=== PATIENT | male | born 1975 | race Caucasian/White ===

== ENCOUNTER → 2016-11-04 | Emergency (ER) | payer MEDICAID ==
[~2016-11-04] VITALS: Wt 74.6 kg
[~2016-11-04] MED LIST: MECL12.574 PO
--- NOTE | 2016-11-04 15:00 | ERD ---
ER Documentation Chief Complaint Date/Time DATE: 11/04/16 TIME: 14:59 Chief Complaint HEADACHE FOR 3 DAYS WITH DIZZINESS AND [place]. NO NEURO DEF. NO TRAUMA HPI Patient is a 40-year-old male with no medical problems who presents with headache and dizziness. He also has ear pain and feels ringing in both ears. It has been there for the past 3 days. He has had no medicines. The symptoms are constant. He has no weakness of his arms or legs. There is no slurred speech. Upon review of old medical records this is the patient's first visit to the emergency department. He does not currently have a primary doctor. ROS All systems reviewed and are negative except as per history of present illness. Medications Home Meds Active Scripts Meclizine Hcl* (Antivert*) 12.5 Mg Tab, 25 MG PO Q6H Y for DIZZINESS, #20 TAB Prov:ISIAH CARCAMO MD 11/04/16 Allergies Allergies: Coded Allergies: No Known Allergy (Unverified , 11/04/16) PMhx/Soc Medical and Surgical Hx: pt denies Medical Hx History of Surgery: Yes (spinal surgery) Anesthesia Reaction: No Hx Neurological Disorder: No Hx Respiratory Disorders: No Hx Cardiac Disorders: No Hx Psychiatric Problems: No Hx Alcohol Use: No Hx Substance Use: No Hx Tobacco Use: No Smoking Status: Never smoker FmHx Family History: diabetes Physical Exam Vitals Vital Signs Date Time Temp Pulse Resp B/P Pulse Ox O2 Delivery O2 Flow Rate FiO2 11/04/16 10:06 98.6 66 21 120/76 98 Physical Exam Const: No acute distress Head: Atraumatic Eyes: Normal Conjunctiva ENT: Normal External Ears, Nose and Mouth. Neck: Full range of motion..~ No meningismus. Resp: Clear to auscultation bilaterally Cardio: Regular rate and rhythm, no murmurs Abd: Soft, non tender, non distended. Normal bowel sounds Skin: No petechiae or rashes Back: No midline or flank tenderness Ext: No cyanosis, or edema Neur: Awake and alert, no slurred speech, strength is 5 out of 5 in all 4 extremities, cranial nerves II through XII intact, no pronator drift, normal gait Psych: Normal Mood and Affect Procedures/MDM Smoking Cessation Therapy: Pt. was lectured for greater than 3 minutes on the health risks of continued smoking and the benefits of cessation. Patient is a 40-year-old male with no medical problems who presents with headache and dizziness. He also has ear pain. It is possible that this is Mni re's disease versus vertigo. At this point I doubt stroke or other significant intracranial process. I doubt intracranial mass or abscess. At this point I believe outpatient management is appropriate with a prescription for meclizine. The patient will need to follow-up closely with the local clinics within 24-48 hours for reevaluation. I do not believe he requires further workup at this time. I believe the risks of radiation outweigh the benefits with CT scan of the brain. Departure Diagnosis: Primary Impression: Vertigo Additional Impression: Headache Headache type: unspecified Headache chronicity pattern: acute headache Intractability: not intractable Qualified Code: R51 - Acute nonintractable headache, unspecified headache type Condition: Fair Patient Instructions: Self-Care for Headaches, Vertigo, Unspecified [facility] Usted se martino hecho un examen mdico de control que le indica que no est en yuly condicin que requiera tratamiento urgente en el Departamento de Emergencia. Un estudio ms profundo y el tratamiento de rincon condicin pueden esperar sin ningn riesgo hasta que usted sea atendida/o en el consultorio de rincon mdico o yuly cl sarah. Es responsabilidad suya arreglar yuly nito para el seguimiento del anne-marie. MANEJO DE CONDICIONES NO URGENTES EN EL FUTURO 1) Si usted tiene un mdico de atencin primaria: Usted debera llamar a rincon mdico de atencin primaria antes de venir al departamento de emergencia. Despus de las horas de consultorio, rincon doctor o rincon asociado/a est disponible por telfono. El mdico o enfermero de romeo en el servicio telefnico puede asesorarle por channing medio para atender el problema, o anne-marie contrario se puede programar yuly nito. 2) Si usted no tiene un mdico de atencin primaria: Llame al mdico o clnica de referencia que aparece abajo vernon las horas de consultorio para hacer yuly nito para que le vean. CLINICAS: [place] [id number] [phone] [facility] [phone] [place] [phone] [address] [place] [address] [phone] [place] [address] [phone] [facility] [phone] [address] Additional Instructions: Llame al doctor MAANA y zehra yuly NITO PARA DENTRO DE 1-2 BABRER.Dgale a la secretaria que nosotros le instruimos hacer esta nito.Avise o llame si rincon condicin se empeora antes de la nito. Regresa aqui si peor o no mejor. ISIAH CARCAMO MD Nov 04, 2016 15:00
== END | disposition home or self-care (01) ==
LOC: FTE 09:55
DX: R42 Dizziness and giddiness (principal)
CPT/HCPCS: 99283